=== PATIENT | female | born 1955 | race Caucasian/White ===

== ENCOUNTER 2019-02-18 09:41 | Emergency (ER) | payer MEDICARE, OTHER ==
[2019-02-18 10:30] LABS: Basophils # (A) 0.1 k/uL (0-0.2); Basophils % (A) 1 %; Eosinophils # (A) 0.2 k/uL (0-0.7); Eosinophils % (A) 3 %; HCT 34.1 % (34.0-46.0); HGB 11.3 gm/dL (11.4-16.0); Lymphocytes # (A) 1.2 k/uL (1.0-4.8); Lymphocytes % (A) 20 %; MCH 28.5 pg (25.0-35.0); MCHC 33.1 g/dL (31.0-37.0); MCV 85.9 fL (80.0-100.0); Monocytes # (A) 0.4 k/uL (0-1.0); Monocytes % (A) 6 %; Neutrophils # (A) 3.9 k/uL (1.3-7.7); Neutrophils % (A) 67 %; Platelet Count 307 k/uL (150-450); RBC 3.96 m/uL (3.80-5.40); RDW 15.2 % (11.5-15.5); WBC 5.8 k/uL (3.8-10.6)
--- NOTE | 2019-02-18 10:35 | XR ---
EXAMINATION TYPE: XR shoulder limited RT DATE OF EXAM: 02/18/2019 CLINICAL HISTORY: pain TECHNIQUE: Two views of the right shoulder are obtained. COMPARISON: None FINDINGS: Glenohumeral prosthesis noted. Glenoid and humeral components appear to be well seated. No bony destructive process or fracture seen. IMPRESSION: 1. Prosthesis as noted. ICD 10 NO FRACTURE, INITIAL EVALUATION
--- NOTE | 2019-02-18 10:48 | ED ---
General Adult HPI - General Chief complaint: Recheck/Abnormal Lab/Rx Stated complaint: rt shoulder pain Time Seen by Provider: 02/18/19 09:53 Source: patient, RN notes reviewed Mode of arrival: wheelchair Limitations: physical limitation - History of Present Illness Initial comments: 63-year-old female presents emergency Department chief complaint of right shoulder infection. Patient states that she is up here visiting from [place]. Patient states that she had surgery in 2017. Patient had an injury few months ago in which she recently developed an infection on her shoulder. Patient states that she's had no increase in pain in the joint. Denies any fevers, chills, night sweats. Patient states that she's been taking Augmentin no other antibiotics. She does admit to [facility] to vancomycin. - Related Data Home Medications Medication Instructions Recorded Confirmed ARIPiprazole [Abilify] 5 mg PO DAILY 02/18/19 02/18/19 Amoxic-Pot Clav 875-125Mg 1 tab PO Q12HR 02/18/19 02/18/19 [Augmentin 875-125] DULoxetine HCL [Cymbalta] 60 mg PO BID 02/18/19 02/18/19 Diclofenac Sodium [Voltaren] 50 mg PO TID 02/18/19 02/18/19 Dulaglutide [Trulicity] 1.5 mg SQ WE 02/18/19 02/18/19 Esomeprazole Magnesium [NexIUM] 40 mg PO DAILY 02/18/19 02/18/19 Levothyroxine Sodium [Synthroid] 50 mcg PO DAILY 02/18/19 02/18/19 Losartan [Cozaar] 25 mg PO DAILY 02/18/19 02/18/19 Simvastatin [Zocor] 10 mg PO HS 02/18/19 02/18/19 metFORMIN HCL [Glucophage] 500 mg PO BID 02/18/19 02/18/19 Previous Rx's Medication Instructions Recorded Sulfamethox-Tmp 800-160Mg [Bactrim 1 each PO Q12HR #20 tab 02/18/19 Ds] Allergies Allergy/AdvReac Type Severity Reaction Status Date / Time vancomycin AdvReac Rash/Hives Verified 02/18/19 10:07 Review of Systems ROS Statement: Those systems with pertinent positive or pertinent negative responses have been documented in the HPI. ROS Other: All systems not noted in ROS Statement are negative. Past Medical History Past Medical History: Diabetes Mellitus, GERD/Reflux, Hypertension, Thyroid Disorder Additional Past Medical History / Comment(s): arthritis, charchot History of Any Multi-Drug Resistant Organisms: None Reported Past Surgical History: Joint Replacement, Orthopedic Surgery Additional Past Surgical History / Comment(s): hips, shoulder and feet Past Psychological History: Anxiety, Depression Smoking Status: Former smoker Past Alcohol Use History: None Reported Past Drug Use History: None Reported General Exam Limitations: physical limitation General appearance: alert, in no apparent distress Neck exam: Present: normal inspection, full ROM. Absent: tenderness, meningismus, lymphadenopathy Respiratory exam: Present: normal lung sounds bilaterally. Absent: respiratory distress, wheezes, rales, rhonchi, stridor Cardiovascular Exam: Present: regular rate, normal rhythm, normal heart sounds. Absent: systolic murmur, diastolic murmur, rubs, gallop, clicks Extremities exam: Present: other (Right shoulder there is an old incision, scar noted, there is an area of fluctuance and erythema there is mildly tender with palpation, arm is neurovascularly intact) Neurological exam: Present: alert, oriented X3, CN II-XII intact Skin exam: Present: warm, dry, intact, normal color. Absent: rash Course Vital Signs 02/18/19 09:48 Temperature 98.3 F Pulse Rate 88 Respiratory 18 Rate Blood Pressure 129/79 O2 Sat by Pulse 97 Oximetry Procedures - Incision & Drainage Consent Obtained: verbal consent Indication: Abscess Site: other (Right anterior shoulder) Size (cm): 2 Anesthetic Used: lidocaine 1%, without epi Amount (mLs): 8 I&D Cleaning Method: Alcohol Wipe Sterile Field Used?: No Scalpel Used: #11 I&D Drainage Obtained: Pus, Blood, Serous Culture Obtained?: No Patient Tolerated Procedure: well, no complications Medical Decision Making - Medical Decision Making 63-year-old female presents for right shoulder infection, cellulitis. Patient does have an abscess which was drained emergency Department labs are unremarkable x-ray unremarkable patient has no pointing or concern for joint infection. Patient will be given Bactrim she'll continue Augmentin. Patient will return for any worsening symptoms patient agrees this plan and states that she follow-up with her surgeon. - Lab Data Result diagrams: 02/18/19 10:15 02/18/19 10:15 Lab Results 02/18/19 02/18/19 02/18/19 Range/Units 10:15 10:15 10:15 WBC 5.8 (3.8-10.6) k/uL RBC 3.96 (3.80-5.40) m/uL Hgb 11.3 L (11.4-16.0) gm/dL Hct 34.1 (34.0-46.0) % MCV 85.9 (80.0-100.0) fL MCH 28.5 (25.0-35.0) pg MCHC 33.1 (31.0-37.0) g/dL RDW 15.2 (11.5-15.5) % Plt Count 307 (150-450) k/uL Neutrophils % 67 % Lymphocytes % 20 % Monocytes % 6 % Eosinophils % 3 % Basophils % 1 % Neutrophils # 3.9 (1.3-7.7) k/uL Lymphocytes # 1.2 (1.0-4.8) k/uL Monocytes # 0.4 (0-1.0) k/uL Eosinophils # 0.2 (0-0.7) k/uL Basophils # 0.1 (0-0.2) k/uL Sodium 138 (137-145) mmol/L Potassium 4.3 (3.5-5.1) mmol/L Chloride 100 (98-107) mmol/L Carbon Dioxide 28 (22-30) mmol/L Anion Gap 10 mmol/L BUN 16 (7-17) mg/dL Creatinine 0.77 (0.52-1.04) mg/dL Est GFR (CKD-EPI)AfAm >90 (>60 ml/min/1.73 sqM) Est GFR (CKD-EPI)NonAf 81 (>60 ml/min/1.73 sqM) Glucose 101 H (74-99) mg/dL Plasma Lactic Acid Sourav 1.6 (0.7-2.0) mmol/L Calcium 8.9 (8.4-10.2) mg/dL Disposition Clinical Impression: Cellulitis of right shoulder, Abscess of right shoulder Disposition: HOME SELF-CARE Condition: Stable Instructions (If sedation given, give patient instructions): Abscess Incision and Drainage (ED), Abscess (ED) Additional Instructions: Please return to the Emergency Department if symptoms worsen or any other concerns. Prescriptions: Sulfamethox-Tmp 800-160Mg [Bactrim Ds] 1 each PO Q12HR #20 tab Is patient prescribed a controlled substance at d/c from ED?: No Referrals: None,Stated [Primary Care Provider] - 1-2 days Time of Disposition: 11:19
[2019-02-18 10:49] LABS: African American GFR (CKD) >90 (>60 ml/min/1.73 sqM); Anion Gap 10 mmol/L; Blood Urea Nitrogen 16 mg/dL (7-17); Calcium 8.9 mg/dL (8.4-10.2); Carbon Dioxide 28 mmol/L (22-30); Chloride 100 mmol/L (98-107); Glucose 101 mg/dL (74-99); Potassium 4.3 mmol/L (3.5-5.1); Sodium 138 mmol/L (137-145)
[2019-02-18] MEDS ORDERED: LIDOCAINE 1% INJ 10MG/ML (20 ML MDV) SQ ONE (10:57)
[2019-02-18 11:34] VITALS: BP 118/69; PULSE 83; RESP 16; TEMP 97.9
== END 2019-02-18 11:35 | disposition home or self-care (01) ==
LOC: EC 09:41
DX: L02.413 Cutaneous abscess of right upper limb (principal); L03.113 Cellulitis of right upper limb; E11.9 Type 2 diabetes mellitus without complications; K21.9 Gastro-esophageal reflux disease without esophagitis; I10 Essential (primary) hypertension; F41.9 Anxiety disorder, unspecified; F32.9 Major depressive disorder, single episode, unspecified; E07.9 Disorder of thyroid, unspecified; Z79.890 Hormone replacement therapy; Z79.84 Long term (current) use of oral hypoglycemic drugs; Z79.899 Other long term (current) drug therapy; Z88.1 Allergy status to other antibiotic agents; Z87.891 Personal history of nicotine dependence
CPT/HCPCS: 36415; 80048; 83605; 85025; 87040; 73020; 99283; 10060; J2001

== ENCOUNTER 2021-11-29 17:02 | Emergency (ER) | payer MEDICARE, OTHER ==
[2021-11-29 17:13] VITALS: TEMP 98.5
[2021-11-29] MEDS ORDERED: HYDROmorphone 0.5 MG/0.5 ML SYRINGE IVP STA (17:17)
--- NOTE | 2021-11-29 17:30 | ED ---
General Adult HPI - General Chief complaint: Extremity Injury, Lower Stated complaint: Hip pain Time Seen by Provider: 11/29/21 17:09 Source: patient, EMS, RN notes reviewed, old records reviewed Mode of arrival: EMS Limitations: no limitations - History of Present Illness Initial comments: Patient is a 66-year-old female with past medical history remarkable for bilateral hip replacements, kid-xmtznos-advlwntdi diabetes, hypertension, thyroid disorder, Charcot disease who presents to the emergency department over concern for left hip dislocation. Patient is expenses before. She states she was sitting at the edge of her bed when she reached forward and felt the left hip slide backwards. Immediately pressure back up to a sitting position and ca lled EMS. She did not fall or suffer any other trauma. Patient is not on blood thinners. She states this has happened previously but has been multiple years. Both hips have been revised at least once. She denies any other acute complaints at this time. Denies any sensory deficits that are new in the bilateral lower extremities but she does have chronic peripheral neuropathy from her diabetes. Describes pain in her thigh but no knee pain, foot pain on the left side. No other acute complaints at this time. Is requesting Dilaudid.Patient is no history of significant cardiac disease. - Related Data Home Medications Medication Instructions Recorded Confirmed ARIPiprazole [Abilify] 5 mg PO DAILY 02/18/19 02/18/19 Amoxic-Pot Clav 875-125Mg 1 tab PO Q12HR 02/18/19 02/18/19 [Augmentin 875-125] DULoxetine HCL [Cymbalta] 60 mg PO BID 02/18/19 02/18/19 Diclofenac Sodium [Voltaren] 50 mg PO TID 02/18/19 02/18/19 Dulaglutide [Trulicity] 1.5 mg SQ WE 02/18/19 02/18/19 Esomeprazole Magnesium [NexIUM] 40 mg PO DAILY 02/18/19 02/18/19 Levothyroxine Sodium [Synthroid] 50 mcg PO DAILY 02/18/19 02/18/19 Losartan [Cozaar] 25 mg PO DAILY 02/18/19 02/18/19 Simvastatin [Zocor] 10 mg PO HS 02/18/19 02/18/19 metFORMIN HCL [Glucophage] 500 mg PO BID 02/18/19 02/18/19 Previous Rx's Medication Instructions Recorded Sulfamethox-Tmp 800-160Mg [Bactrim 1 each PO Q12HR #20 tab 02/18/19 Ds] Allergies Allergy/AdvReac Type Severity Reaction Status Date / Time vancomycin AdvReac Rash/Hives Verified 02/18/19 10:07 Review of Systems ROS Statement: Those systems with pertinent positive or pertinent negative responses have been documented in the HPI. Review of Systems: CONST: Denies fever EYES: Denies blurry vision ENT: Denies nasal congestion C/V: Denies Chest pain RESP: Denies shortness of breath GI: Denies abdominal pain : Denies dysuria SKIN: Denies rash. MSK: Endorses left hip pain. NEURO: Denies headache ROS Other: All systems not noted in ROS Statement are negative. Past Medical History Past Medical History: Diabetes Mellitus, GERD/Reflux, Hypertension, Thyroid Disorder Additional Past Medical History / Comment(s): arthritis, charchot History of Any Multi-Drug Resistant Organisms: None Reported Past Surgical History: Joint Replacement, Orthopedic Surgery Additional Past Surgical History / Comment(s): hips, shoulder and feet Past Psychological History: Anxiety, Depression Smoking Status: Former smoker Past Alcohol Use History: None Reported Past Drug Use History: None Reported General Exam - General Exam Comments Initial Comments: General: Appears in moderate distress secondary to left hip pain. HEAD: Normal with no signs of head trauma. EYES: PERRLA, EOMI, conjunctiva normal, no discharge. ENT: Hearing grossly intact, normal oropharynx. RESPIRATORY: Clear breath sounds bilaterally. No wheezes, rales, or rhonchi. C/V: Regular rate and rhythm. S1 and S2 auscultated, no edema, peripheral pulses 2+ and intact throughout ABD: Abd is soft, nontender, nondistended EXT: Range of motion is reduced over the left hip. Left leg is mildly shortened. No rotation. Neurovascularly intact in the left lower extremity. No obvious deformity. No lumbar spine tenderness to palpation. No cervical or thoracic spine tenderness to palpation. SKIN: No rashes or lesions observed on exposed skin. NEURO: Alert and oriented 4. No focal sensory or strength deficits. Limitations: no limitations Course Vital Signs 11/29/21 11/29/21 11/29/21 17:03 19:04 19:09 Temperature 98.5 F Pulse Rate 79 86 85 Respiratory 16 16 18 Rate Blood Pressure 116/74 129/77 133/68 O2 Sat by Pulse 99 95 Oximetry 11/29/21 11/29/21 19:13 19:18 Temperature Pulse Rate 88 86 Respiratory 18 18 Rate Blood Pressure 115/59 109/80 O2 Sat by Pulse 99 99 Oximetry Procedures - Orthopedic Joint Reduction Joint #1 Consent Obtained: written consent Side: left Joint Reduction Location: hip Analgesia: procedural sedation Technique Used: traction/counter-traction, direct manipulation Post-Reduction Neuro Exam: intact Post-Reduction Vascular Exam: intact Post Reduction X-Ray Obtained: Yes Post Reduction X-Ray Results: reduced Patient Tolerated Procedure: well Additional Comments: Neurovascularly intact following procedure. - Procedural Sedation Procedural Sedation Start Time: 19:04 Procedural Sedation Stop Time: 19:18 Indications: fracture/dislocation reduction ASA Class: I Mallampati Airway Score: 2 Preparation: hall monitor applied, pulse oximeter, capnometry used, supplemental O2 applied, suction/airway equipment at bedside, IV secured Ketamine: IV Ketamine Dose: 45 IV Propofol Dose (mgs): 245 (administered in 45-50mg pushes over the course of the procedure.) Complications: none Patient Tolerated Procedure: well Medical Decision Making - Medical Decision Making Based on the patient's presentation and physical exam, I'm am suspicious of a left hip injury, suspect dislocation. This has happened previously for the patient. He has been reduced in the emergency department and she has been discharged home. It has been 10 years since last dislocation. We will provide her with pain medications as well as x-rays of the left hip and femur. She was in agreement this plan. X-rays were remarkable for a dislocation of the left hip prosthesis with no signs of fracture. I did the patient and she expressed understanding. Will require procedural sedation as well as bedside reduction. She was in agreement this plan. There was a delay as there were multiple critical patients that presented. Finally respiratory therapy, myself, nursing staff were able to present bedside to complete procedural sedation and reduction. I will start with 1 mg/kg of acute fall for procedural sedation. Please see additional procedural note for further information. After multiple attempts, and redoses of propofol, and the aid of ER physician Dr. Perez, we were able to successfully reduce the patient's left hip. Postreduction x-rays shows a successful reduction. Patient was placed in a knee immobilizer. Recommended follow-up with her orthopedic surgeon. She was in agreement this plan. She has seen OA previously and will provide him with contact information for the patient. I instructed the patient to follow up with their PCP in the next 3 days. I provided contact information for follow up with yasmine CHAN. I explained that the patient should return to the emergency department if they experience any worsening symptoms. Strict return precautions were discussed with the patient. The patient expressed understanding of these instructions. I answered all questions that the patient had. The patient was discharged home in good condition with their prescriptions and follow up information. Disposition Clinical Impression: Hip dislocation, left, S/P closed reduction of dislocated total hip prosthesis Disposition: HOME SELF-CARE Condition: Good Instructions (If sedation given, give patient instructions): Hip Dislocation (ED) Is patient prescribed a controlled substance at d/c from ED?: No Referrals: None,Stated [Primary Care Provider] - 1-2 days Kristal Le NPC [Nurse Practitioner] - 1-2 days Time of Disposition: 20:10
--- NOTE | 2021-11-29 17:53 | XR ---
EXAMINATION TYPE: XR Hip LT and AP Pelvis DATE OF EXAM: 11/29/2021 COMPARISON: NONE HISTORY: Pain TECHNIQUE: 3 views FINDINGS: There is bilateral hip prosthesis. There is dislocation of the left hip prosthesis. No frac ture seen. The pelvic ring is intact. Posterior fusion surgery of the lumbosacral junction. There are screws in the left and right sacrum. IMPRESSION: Dislocated left hip prosthesis. No fracture seen.
--- NOTE | 2021-11-29 18:10 | XR ---
EXAMINATION TYPE: XR femur LT DATE OF EXAM: 11/29/2021 COMPARISON: NONE HISTORY: Pain TECHNIQUE: 4 views FINDINGS: There is dislocation of the left hip prosthesis. No fracture seen. The knee joint appears a natomic. No evidence of knee joint fracture. IMPRESSION: Dislocated left hip prosthesis.
[2021-11-29] MEDS ORDERED: PROPOFOL 10 MG/ML 20 ML VIAL IV ONE ×2 (18:11→20:19)
[2021-11-29] MEDS ORDERED: KETAMINE 10 MG/ML 20 ML VIAL IV ONE (18:12)
--- NOTE | 2021-11-29 19:56 | XR ---
EXAMINATION TYPE: XR pelvis AP view DATE OF EXAM: 11/29/2021 COMPARISON: Today HISTORY: Post reduction TECHNIQUE: Single view FINDINGS: There is anatomic reduction of the left hip prosthesis. No fracture seen. IMPRESSION: Anatomic reduction.
[2021-11-30 04:54] VITALS: BP 109/66; PULSE 96; RESP 16
== END 2021-11-29 20:29 | disposition home or self-care (01) ==
LOC: EC 17:02
DX: T84.021A Dislocation of internal left hip prosthesis, initial encounter (principal); E11.9 Type 2 diabetes mellitus without complications; I10 Essential (primary) hypertension; E07.9 Disorder of thyroid, unspecified; K21.9 Gastro-esophageal reflux disease without esophagitis; Z88.1 Allergy status to other antibiotic agents; Z79.899 Other long term (current) drug therapy; Z79.890 Hormone replacement therapy; Z87.891 Personal history of nicotine dependence; Z79.84 Long term (current) use of oral hypoglycemic drugs; X58.XXXA Exposure to other specified factors, initial encounter
CPT/HCPCS: 72170; 73502; 73552; 99284; 27265; 99152; 96374; J2704; J1170